=== PATIENT | female | born 1995 | race Caucasian/White ===

== ENCOUNTER → 2017-08-15 | Outpatient (CLI) | payer BC ==
[~2017-08-15] MED LIST: ADVIN25/60 INH; BCPILLS PO; BUPR-83 PO; CETI5TAB5 PO; CLON0.5T3 PO; FLUT0.15 INH; LAMO200T PO; NXM/40 PO
[2017-08-15 15:14] LABS: HEMATOCRIT 37.7 % (37-47); MEAN CELL VOLUME 82.7 fL (80-100); MEAN CORPUSCULAR HEMOGLOBIN 27.2 pg (25-34); MEAN CORPUSCULAR HGB CONC 32.9 g/dl (32-36); MEAN PLATELET VOLUME 8.8 fL (7.4-10.4); PLATELET COUNT 465 K/uL (130-400); RED BLOOD COUNT 4.56 M/uL (4.2-5.4)
[2017-08-15 15:32] LABS: BLOOD UREA NITROGEN 11 mg/dl (7-18); BUN/CREATININE RATIO 12.9 (10-20); CALCIUM 9.3 mg/dl (8.5-10.1); CARBON DIOXIDE 25 mmol/L (21-32); CHLORIDE 105 mmol/L (98-107); CREATININE 0.88 mg/dl (0.60-1.20); GLUCOSE 89 mg/dl (70-99); POTASSIUM 3.9 mmol/L (3.5-5.1); SODIUM 137 mmol/L (136-145)
[2017-08-15 15:43] LABS: PHOSPHORUS 2.4 mg/dl (2.5-4.9)
== END | disposition home or self-care (01) ==
LOC: C.LAB 12:54
PROVIDERS: ATTEND Plastic Surgery Surgery of the Hand
DX: Z01.812 Encounter for preprocedural laboratory examination (principal); Z01.818 Encounter for other preprocedural examination; E03.9 Hypothyroidism, unspecified